=== PATIENT | male | born 1995 | race Asian ===

== ENCOUNTER 2017-01-24 08:46 | Emergency (ER) | payer OTHER ==
[2017-01-24 08:55] VITALS: BP 148/100; PULSE 75; RESP 18; TEMP 98; O2SAT 97
--- NOTE | 2017-01-24 09:12 | EDPHY ---
H & P Stated Complaint: c/o 1 month of rash/itching/swelling x 1 month - inc. since [employer] [place] Time Seen by Provider: 01/24/17 08:56 HPI/ROS: Chief Complaint: Rash on face HPI: 21-year-old male has had a rash on his face for the last month. Is been worse since he went to water were old 4 days ago. He is below his right eye and on his right ear. It is mildly tender but mostly itchy. It has been crusting and flaking. Does not have a history of the same. No fevers or chills. No eye pain. No pain with extraocular movement. There has been no blistering. No hearing changes. ROS: 10 point Review of Systems is negative except as noted in the HPI. PMH: None Medications none Allergies: No known drug allergies Social History: [No] smoking, [no] alcohol, [ no recreational drug use] Family History: [non-contributory] Physical Exam: General: Awake, alert, no acute distress Face: There is a erythematous rash on his right cheek and over his right pinna. There is some skin flaking and crusting. It is not warm to the touch. It is minimally tender. There is no extraocular involvement. Bilateral eyes are normal. He has no cervical lymphadenopathy. Extraocular movements are intact. Neuro: Cranial nerves 2-12 intact. - Personal History Current Tetanus Diphtheria and Acellular Pertussis (TDAP): Yes - Medical/Surgical History Other PMH: denies - Social History Smoking Status: Never smoked Constitutional: Initial Vital Signs Temperature (C) 36.6 C 01/24/17 08:53 Heart Rate 75 01/24/17 08:53 Respiratory Rate 18 01/24/17 08:53 Blood Pressure 148/100 H 01/24/17 08:53 O2 Sat (%) 97 01/24/17 08:53 O2 Delivery Mode Room Air Allergies/Adverse Reactions: No Known Allergies Allergy (Unverified 01/24/17 08:55) Home Medications: Medication Instructions Recorded Cephalexin [Keflex (*)] 500 mg PO Q6H #40 cap 01/24/17 Fucicort 01/24/17 Hydrocycle 01/24/17 Loratadine 01/24/17 Medical Decision Making ED Course/Re-evaluation: 19-year-old male with a superficial skin infection consistent with impetigo. Will start him on oral antibiotics is been going on for months. Will refer him for outpatient follow-up. Departure - Departure Disposition: Home, Routine, Self-Care Clinical Impression: Impetigo Condition: Good Instructions: Impetigo (ED) Additional Instructions: Take your full course of antibiotics. Follow up with primary care physician about 3-4 days for re-evaluation. Return to the emergency depart for increasing redness, increasing pain, fevers, chills, or any other concerns. Referrals: Lydia Douglas [Other] - As per Instructions Prescriptions: Cephalexin [Keflex (*)] 500 mg PO Q6H #40 cap
== END 2017-01-24 09:28 | disposition home or self-care (01) ==
LOC: CED 08:46
DX: L01.00 Impetigo, unspecified (principal)